=== PATIENT | male | born 1990 | race African-American/Black ===

== ENCOUNTER 2018-09-30 13:01 | Emergency (ER) | payer MEDICAID ==
[~2018-09-30] VITALS: Ht 175.3 cm; Wt 86.3 kg
[2018-09-30 13:13] VITALS: Ht 175.3 cm; Wt 86.3 kg
[2018-09-30] MEDS ORDERED: SOD CHLORIDE 0.9% 1,000 ML IV STA (13:58)
[2018-09-30] MEDS ORDERED: ACETAMINOPHEN 325 MG TAB PO ONE (14:00)
[2018-09-30] MEDS ORDERED: LEVE-5 PO (14:51)
[2018-09-30] MEDS ORDERED: ESLI400T PO (14:52)
--- NOTE | 2018-09-30 14:57 | ERD ---
ER Documentation Chief Complaint Chief Complaint PT bouhg there by [employer] driver trainer secondary to possible seizure. HPI Patient is a 28-year-old male with history of seizures who presents altered. Please note the history and physical exam is limited as the patient was altered upon arrival. The patient was brought in by a [employer] driver trainer. The driver trainer described that he had a seizure while in the backseat. He is altered and possibly postictal. Upon review of old medical records this is the patient's first visit to the emergency department. ROS All systems reviewed and are negative except as per history of present illness. Medications Home Meds Reported Medications Eslicarbazepine Acetate (Aptiom) 400 Mg Tablet, 2000 MG PO QAM, #30 TAB 09/30/18 Levetiracetam* (Keppra*) 500 Mg Tablet, 2000 MG PO BID, TAB 09/30/18 Allergies Allergies: Coded Allergies: No Known Allergy (Unverified , 09/30/18) PMhx/Soc History of Surgery: No Anesthesia Reaction: No Hx Neurological Disorder: Yes (seizures) Hx Respiratory Disorders: No Hx Cardiac Disorders: No Hx Psychiatric Problems: No Hx Miscellaneous Medical Probl: No Hx Alcohol Use: No Hx Substance Use: No Hx Tobacco Use: No Smoking Status: Never smoker FmHx Unable to obtain Physical Exam Vitals Vital Signs Date Temp Pulse Resp B/P (MAP) Pulse Ox O2 O2 Flow FiO2 Time Delivery Rate 09/30/18 97.6 89 18 104/57 99 13:13 (73) Physical Exam Const: Altered and diaphoretic Head: Atraumatic Eyes: Normal Conjunctiva ENT: Normal External Ears, Nose and Mouth. Neck: Full range of motion. No meningismus. Resp: Clear to auscultation bilaterally Cardio: Regular rate and rhythm, no murmurs Abd: Soft, non tender, non distended. Normal bowel sounds Skin: Diaphoresis Back: No midline or flank tenderness Ext: No cyanosis, or edema Neur: Awake but confused and diaphoretic, appears postictal Result Diagram: 09/30/18 1328 09/30/18 1328 Results 24 hrs Laboratory Tests Test 09/30/18 13:11 09/30/18 13:28 09/30/18 13:31 Bedside Glucose 132 mg/dL White Blood Count 8.7 10^3/ul Red Blood Count 5.12 10^6/ul Hemoglobin 12.5 g/dl Hematocrit 41.6 % Mean Corpuscular Volume 81.3 fl Mean Corpuscular Hemoglobin 24.4 pg Mean Corpuscular 30.0 g/dl Hemoglobin Concent Red Cell Distribution Width 14.0 % Platelet Count 175 10^3/UL Mean Platelet Volume 11.7 fl Immature Granulocytes % 0.500 % Neutrophils % 46.7 % Lymphocytes % 41.4 % Monocytes % 9.1 % Eosinophils % 1.7 % Basophils % 0.6 % Nucleated Red Blood Cells % 0.0 /100WBC Immature Granulocytes # 0.040 10^3/ul Neutrophils # 4.1 10^3/ul Lymphocytes # 3.6 10^3/ul Monocytes # 0.8 10^3/ul Eosinophils # 0.2 10^3/ul Basophils # 0.1 10^3/ul Nucleated Red Blood Cells # 0.0 10^3/ul Sodium Level 142 mmol/L Potassium Level 4.4 mmol/L Chloride Level 106 mmol/L Carbon Dioxide Level 11 mmol/L Anion Gap 25 Blood Urea Nitrogen 11 mg/dl Creatinine 1.50 mg/dl Est Glomerular Filtrat Rate mL/min > 60 mL/min Glucose Level 123 mg/dl Calcium Level 10.3 mg/dl Total Bilirubin 0.2 mg/dl Direct Bilirubin 0.00 mg/dl Indirect Bilirubin 0.2 mg/dl Aspartate Amino Transf (AST/SGOT) 41 IU/L Alanine < 6 IU/L Aminotransferase (ALT/SGPT) Alkaline Phosphatase 84 IU/L Total Protein 8.9 g/dl Albumin 5.4 g/dl Globulin 3.50 g/dl Albumin/Globulin Ratio 1.54 Salicylates Level < 1.0 mg/dl Acetaminophen Level < 10.0 ug/ml Ethyl Alcohol Level < 10.0 mg/dl POC Venous Lactate 10.0 mmol/L Current Medications Medications Dose Sig/Christian Start Time Status Last (Trade) Ordered Route PRN Stop Time Admin Dose Reason Admin 650 mg ONCE ONCE 09/30/18 DC 09/30/18 Acetaminophen PO 14:00 14:49 (Tylenol 09/30/18 14:01 Tab) Sodium 1,000 ml @ Q1H STAT 09/30/18 DC 09/30/18 Chloride 1,000 mls/hr IV 13:58 14:13 09/30/18 14:57 Procedures/MDM EKG read by me: Rate/Rhythm: Regular rate and rhythm at a rate of 66 Intervals: Normal Impression: No evidence of ischemia or arrhythmia CT brain negative per radiology. Patient is a 28-year-old male who presents with acute altered mental status. Once he was no longer postictal he says he has a history of seizures and takes Keppra. He said that he has Keppra at home. He is now awake, alert, and oriented x3. Laboratory studies were consistent with seizure with a low bicarbonate and high lactic acid. CT brain was negative for mass or hemorrhage or stroke. I believe outpatient management is appropriate but the patient will need close follow-up with his primary doctor within 24-48 hours. He can return for any worsening symptoms. Departure Diagnosis: Primary Impression: Seizure disorder Condition: Fair Patient Instructions: Seizure, Recurrent [Adult] Referrals: Your doctor Additional Instructions: Call your primary care doctor TOMORROW for an appointment during the next 1-2 days.See the doctor sooner or return here if your condition worsens before your appointment time. NGA KOLB MD Sep 30, 2018 14:57
[2018-09-30 15:34] VITALS: BP 113/55; PULSE 56; RESP 18
== END 2018-09-30 15:38 | disposition home or self-care (01) ==
LOC: E/R 13:01
DX: G40.909 Epilepsy, unspecified, not intractable, without status epilepticus (principal); R40.2132 Coma scale, eyes open, to sound, at arrival to emergency department; R40.2242 Coma scale, best verbal response, confused conversation, at arrival to emergency department; R40.2362 Coma scale, best motor response, obeys commands, at arrival to emergency department
CPT/HCPCS: 36415; 70450; 80053; 80307; 82962; 83605; 85025; 93005; J7030; Z7502